=== PATIENT | male | born 2005 | race Caucasian/White ===

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

== ENCOUNTER 2023-08-25 19:26 | Emergency (ER) | payer SELFPAY ==
[2023-08-25 21:43] LABS: C. TRACHOMATIS BY PCR DETECTED; N. GONORRHOEAE BY PCR NOT DETECTED
== END 2023-08-25 19:47 | disposition home or self-care (01) ==
LOC: MW.ED 19:26
DX: Z11.3 Encounter for screening for infections with a predominantly sexual mode of transmission (principal); Z88.0 Allergy status to penicillin; Z75.8 Other problems related to medical facilities and other health care
CPT/HCPCS: 87491; 87591; 99283

== ENCOUNTER 2023-09-05 20:03 | Emergency (ER) | payer SELFPAY ==
[2023-09-05 20:44] LABS: APPEARANCE,URINE CLEAR; BILIRUBIN,URINE NEGATIVE (NEGATIVE); COLOR,URINE YELLOW; GLUCOSE,URINE NEGATIVE (NEGATIVE); KETONES,URINE NEGATIVE (NEGATIVE); LEUKOCYTE ESTERASE,URINE NEGATIVE (NEGATIVE); NITRITE,URINE NEGATIVE (NEGATIVE); OCCULT BLOOD,URINE NEGATIVE (NEGATIVE); PROTEIN,URINE NEGATIVE (NEGATIVE); UROBILINOGEN,URINE 0.2 EU/dL (<2.0)
[2023-09-05 22:20] LABS: C. TRACHOMATIS BY PCR NOT DETECTED; N. GONORRHOEAE BY PCR NOT DETECTED
== END 2023-09-05 21:14 | disposition home or self-care (01) ==
LOC: MW.ED 20:03
DX: Z11.3 Encounter for screening for infections with a predominantly sexual mode of transmission (principal); Z75.8 Other problems related to medical facilities and other health care; Z88.0 Allergy status to penicillin
CPT/HCPCS: 81003; 87491; 87591; 99283

== ENCOUNTER 2024-06-05 22:23 | Observation (INO) | payer OTHER ==
[2024-06-05] MEDS ORDERED: Ketorolac 30 MG/ML SDV IVPUSH ONE (22:42)
[2024-06-05 22:49] LABS: BASOPHILS ABSOLUTE AUTO 0.04 K/uL (0.00-0.20); BASOPHILS PERCENT AUTO 0.4 % (0.0-1.0); EOSINOPHILS ABSOLUTE AUTO 0.13 K/uL (0.00-0.45); EOSINOPHILS PERCENT AUTO 1.4 % (0.0-6.0); HEMATOCRIT 44.6 % (42.0-52.0); HEMOGLOBIN 15.2 g/dL (14.0-18.0); IMMATURE GRAN ABSOLUTE AUTO 0.01 K/uL (0.00-0.05); IMMATURE GRAN PERCENT AUTO 0.1 % (0.0-0.4); LYMPHOCYTES ABSOLUTE AUTO 3.95 K/uL (1.00-4.80); LYMPHOCYTES PERCENT AUTO 41.6 % (24.0-44.0); MEAN CORPUSCULAR HGB CONC 34.1 g/dL (32.0-36.0); MEAN CORPUSCULAR VOLUME 85.1 fL (83.0-99.0); MEAN PLATELET VOLUME 10.2 fL (9.4-12.4); MONOCYTES PERCENT AUTO 3.2 % (0.0-8.0); NEUTROPHILS ABSOLUTE AUTO 5.06 K/uL (1.80-7.70); NEUTROPHILS PERCENT AUTO 53.3 % (41.0-71.0); PLATELET COUNT,PLT 276 K/uL (150-400); RED BLOOD CELL COUNT 5.24 M/uL (4.52-5.90); WHITE BLOOD CELL COUNT,WBC 9.49 K/uL (3.9-11.3)
[2024-06-05] MEDS: Sodium Chloride 0.9% 1,000 ML IV ONE (23:02)
[2024-06-05] MEDS: Ketorolac 30 MG/ML SDV IVPUSH ONE (23:02)
[2024-06-05] MEDS: Ondansetron 4 MG/2 ML SDV IVPUSH ONE (23:02)
[2024-06-05 23:06] LABS: A/G RATIO 1.3 (0.9-1.6); ALBUMIN 4.3 g/dL (3.4-5.0); BILIRUBIN TOTAL 1.2 mg/dL (0.2-1.0); CARBON DIOXIDE,CO2 29.1 mmol/L (21.0-32.0); EST CRCL DRUG DOSING (CG) 105.84 mL/min; POTASSIUM,K 3.7 mmol/L (3.5-5.1); PROTEIN TOTAL,TP 7.7 g/dL (6.4-8.2)
[2024-06-05] MEDS: Iopamidol 755 MG/ML 500 ML Multipack Bottle IVPUSH ONE (23:17)
[2024-06-06] MEDS ORDERED: Piperacillin/Tazobactam 3.375 GM in Sodium Chloride 0.9% 100 ML IV ONE (00:25)
[2024-06-06] MEDS: cefOXitin 2 GM in Sodium Chloride 0.9% 50 ML IV ONE (00:40)
[2024-06-06] MEDS: Sodium Chloride 0.9% 1,000 ML IV SCH (00:41)
[2024-06-06] MEDS: Morphine 2 MG/ML SYRINGE IVPUSH PRN (00:44)
[2024-06-06] MEDS ORDERED: Ondansetron 4 MG/2 ML SDV IVPUSH PRN ×2 (01:36→10:19)
[2024-06-06] MEDS ORDERED: Propofol 200 MG/20 ML SDV ONE (07:16)
[2024-06-06] MEDS ORDERED: fentaNYL 100 MCG/2 ML SDV ONE (07:16)
[2024-06-06] MEDS ORDERED: Rocuronium Bromide 50 MG/5 ML Syringe ONE (07:17)
[2024-06-06] MEDS ORDERED: Bupivacaine 0.5% 30 ML SDV ONE (07:17)
[2024-06-06] MEDS ORDERED: Lidocaine 1% 5 ML VIAL ONE (07:17)
[2024-06-06] MEDS ORDERED: Midazolam 1 MG/ML 2 ML SDV ONE (07:17)
[2024-06-06] MEDS ORDERED: Dexamethasone 4 MG/ML 5 ML MDV ONE (07:17)
[2024-06-06] MEDS ORDERED: ceFAZolin 1 GM Vial ONE (07:17)
[2024-06-06] MEDS ORDERED: Ondansetron 4 MG/2 ML SDV ONE ×2 (07:17→08:59)
[2024-06-06] MEDS ORDERED: Ropivacaine 0.5% 5 MG/ML 30 ML SDV ONE (07:25)
[2024-06-06] MEDS ORDERED: Lactated Ringers 1,000 ML IV SCH (08:30)
[2024-06-06] MEDS ORDERED: Sugammadex Sodium 200 MG/2 ML VIAL IV ONE (08:59)
[2024-06-06] MEDS ORDERED: Ketorolac 30 MG/ML SDV ONE (09:36)
[2024-06-06] MEDS ORDERED: Acetaminophen/HYDROcodone 325-5 MG Tab PO PRN ×2 (10:19→10:38)
[2024-06-06] MEDS ORDERED: Morphine 2 MG/ML SYRINGE IVPUSH PRN (10:20)
[2024-06-06] MEDS: Lactated Ringers 1,000 ML IV SCH (10:50)
== END 2024-06-06 15:30 | disposition home or self-care (01) ==
LOC: MW.ED 22:23 → MW.MS 06-06 00:27
PROVIDERS: ADMIT Surgery; ATTEND Surgery
DX: K35.33 Acute appendicitis with perforation, localized peritonitis, and gangrene, with abscess (principal); Z88.0 Allergy status to penicillin
CPT/HCPCS: 36415; 44970; 64488; 74177; 80053; 83690; 85025; 96361; 96365; 96366; 96375; 99285; G0378; J0665; J0694; J1100; J1885; J2003; J2250; J2270; J2405; J2704; J2795; J3010; J7030; J7120; Q9967; 00840; 64486; 99284; J0690; J3490